=== PATIENT | male | born 1955 | race Caucasian/White ===

== ENCOUNTER → 2017-08-09 | Outpatient (CLI) | payer MEDICARE, OTHER ==
[~2017-08-09] MED LIST: ACET325 PO; ALBU90OI INH; ANTACID PO; ARIP10 PO; ASPI81EC PO; BACITO TP; Benztropine Me0.5 MG PO; Benztropine Mesy1 MG PO; CARB200; CARB200 PO; CEPH500 PO; CIPR500 PO; CODACE30 PO; CODACE60; CODACE60 PO; CYCL10 PO; Carbamazepine200 MG PO; FLUT44OIA INH; HALO5 PO; HYDACE10B PO; HYDACE5 PO; HYDCHL12.5 PO; HYDCHL50 PO; IBUP800 PO; LEVSOD25; LEVSOD25 PO; LISHYD1012 PO; LISI20 PO; LISI5 PO; LITH300C; LITH300ER PO; LITH450ER; LITH450ER PO; LORA.5 PO; LORA1 PO; MELA3 PO; METO25ER PO; METO50 PO; METO50ER; MULTIVITAMINS; NAPR500 PO; NAPR550 PO; OLAN10 PO; OLAN20 MM; OLAN7.5 PO; OMEP20ER PO; OXCA150; OXCA300; PENVK500 PO; PROACE100 PO; PROP20 PO; RISP.5; RXCODACET PO; RXPROACE PO; SULTRIDS PO; SULTRISS PO; TRAM50 PO; Therems1 EACH PO; VERA120ER PO; VERA120ERB PO; VERA240ER; VERA240ER PO; VERA240ERB; VERA80 PO; VERAPAMIL; Ventolin/Prove6.7 GM INH; ZOLP10; Zyprexa10 MG PO; [UNRECOGNIZED DRUG - CODE]; [UNRECOGNIZED DRUG - REMARK]
[2017-08-09 11:40] LABS: U Amphetamine Screen Not Detected; U Barbituate Screen Not Detected; U Benzodiazapine Screen Not Detected; U Buprenorphine Screen Not Detected; U Cannabinoids Screen Not Detected; U Cocaine Screen Not Detected; U Methadone Screen Not Detected; U Methamphetamine Screen Not Detected; U Opiates Screen Not Detected; U Oxycodone Screen Not Detected; U Phencyclidine Screen Not Detected; U Propoxyphene Screen Not Detected
== END ==
LOC: LAB 08:25 → LAB SHORT 08:25
PROVIDERS: Registered Nurse
DX: Z79.899 Other long term (current) drug therapy (principal)

== ENCOUNTER 2017-09-06 20:19 | Emergency (ER) | payer MEDICARE, OTHER ==
[~2017-09-06] VITALS: Ht 170.2 cm; Wt 81.7 kg
[2017-09-07] MEDS ORDERED: Benztropine Me0.5 MG PO (21:10)
[2017-09-07] MEDS ORDERED: TIOT18 INH (21:10)
[2017-09-07] MEDS ORDERED: HYDCHL50 PO (21:10)
[2017-09-07] MEDS ORDERED: GABA300 PO (21:10)
[2017-09-07] MEDS ORDERED: Zestril40 MG PO (21:11)
[2017-09-07] MEDS ORDERED: HALO2 PO (21:11)
== END 2017-09-06 20:57 | disposition left against medical advice (07) ==
LOC: ER 20:19
DX: Z53.21 Procedure and treatment not carried out due to patient leaving prior to being seen by health care provider (principal)

== ENCOUNTER 2017-09-07 19:07 | Emergency (ER) | payer MEDICARE, OTHER ==
[~2017-09-07] VITALS: Ht 170.2 cm; Wt 81.7 kg
[2017-09-07] MEDS ORDERED: TIOT18 INH (21:10)
[2017-09-07] MEDS ORDERED: Benztropine Me0.5 MG PO (21:10)
[2017-09-07] MEDS ORDERED: GABA300 PO (21:10)
[2017-09-07] MEDS ORDERED: HYDCHL50 PO (21:10)
[2017-09-07] MEDS ORDERED: Zestril40 MG PO (21:11)
[2017-09-07] MEDS ORDERED: HALO2 PO (21:11)
== END 2017-09-07 21:16 | disposition home or self-care (01) ==
LOC: ER 19:07
DX: F31.9 Bipolar disorder, unspecified (principal); I10 Essential (primary) hypertension; F03.90 Unspecified dementia, unspecified severity, without behavioral disturbance, psychotic disturbance, mood disturbance, and anxiety; F17.200 Nicotine dependence, unspecified, uncomplicated; Z91.018 Allergy to other foods; Z88.8 Allergy status to other drugs, medicaments and biological substances; Z88.5 Allergy status to narcotic agent; Z79.899 Other long term (current) drug therapy
CPT/HCPCS: 99283

== ENCOUNTER 2017-09-18 14:10 | Observation (INO) | payer MEDICARE, OTHER ==
[~2017-09-18] VITALS: Ht 172.7 cm; Wt 74.8 kg
[~2017-09-18 14:10] MED LIST changes: +BENADRYL25 MG PO; +GABA300 PO; +HALO2 PO; +HALO5; +TIOT18 INH; +Zestril40 MG PO
[2017-09-18 14:51] LABS: BASOPHILS ABSOLUTE AUTO 0.02 K/mm3 (0.00-0.23); BASOPHILS PERCENT AUTO 0 % (0-2); EOSINOPHILS ABSOLUTE AUTO 0.02 K/mm3 (0.00-0.68); EOSINOPHILS PERCENT AUTO 0 % (0-6); Hematocrit 39.8 % (37.0-53.0); Hemoglobin 14.1 g/dL (13.5-17.5); IMMATURE GRAN ABSOLUTE AUTO 0.02 K/mm3 (0.00-0.10); IMMATURE GRAN PERCENT AUTO 0 % (0-1); LYMPHOCYTES ABSOLUTE AUTO 2.06 K/mm3 (0.84-5.20); LYMPHOCYTES PERCENT AUTO 28 % (21-46); MONOCYTES ABSOLUTE AUTO 0.52 K/mm3 (0.16-1.47); MONOCYTES PERCENT AUTO 7 % (4-13); Mean Corpuscular HGB 32.6 pg (26.0-34.0); Mean Corpuscular HGB Conc 35.4 g/dL (31.5-36.5); Mean Corpuscular Volume 92 fL (80-100); Mean Platelet Volume 10.8 fL (9.1-12.4); NEUTROPHILS ABSOLUTE AUTO 4.81 K/mm3 (1.96-9.15); NEUTROPHILS PERCENT AUTO 64 % (41-73); Platelet Count 177 K/mm3 (150-400); RDW Coefficient Variation 12.1 % (11.7-14.2); RDW Standard Deviation 41.3 fL (35.1-46.3); Red Blood Cell Count 4.32 M/mm3 (4.30-5.90); White Blood Cell Count 7.45 K/mm3 (4.00-11.30)
[2017-09-18 14:58] LABS: Alanine Aminotransfer (ALT/SGP 50 U/L (12-78); Albumin/Globulin Ratio 1.4 (0.8-1.8); Alk Phos 46 U/L (50-136); Anion Gap 13 mmol/L (6-16); Aspartate Aminotrans (AST/SGOT 82 U/L (12-37); Bilirubin, Total 1.1 mg/dL (0.1-1.0); Blood Urea Nitrogen 17 mg/dL (8-24); Bun/Creatinine Ratio 17.2 (12.0-20.0); CO2, Blood 20 mmol/L (21-32); Calcium, Blood 8.6 mg/dL (8.5-10.1); Chloride, Blood 110 mmol/L (98-108); Creatinine, Blood 0.99 mg/dL (0.60-1.20); Ethanol (Alcohol), Blood, Med 222 mg/dL; Globulin, Blood 2.9 g/dL (2.2-4.0); Glomerular Filtration Rate >60 (60-); Glucose, Blood 72 mg/dL (70-99); Potassium, Blood 3.2 mmol/L (3.5-5.5); Sodium, Blood 143 mmol/L (136-145); Total Protein, Blood 6.9 g/dL (6.4-8.2)
== END 2017-09-18 18:39 | disposition home or self-care (01) ==
LOC: ER 14:10 → EOR 14:11
PROVIDERS: Emergency Medicine
DX: F10.229 Alcohol dependence with intoxication, unspecified (principal); E87.6 Hypokalemia; Z79.899 Other long term (current) drug therapy; Z87.891 Personal history of nicotine dependence; Y90.7 Blood alcohol level of 200-239 mg/100 ml
CPT/HCPCS: 80053; 85025; 93005; 93010; 99285-25; G0378; G0480; J7030

== ENCOUNTER 2017-09-20 08:12 | Emergency (ER) | payer MEDICARE, OTHER ==
[~2017-09-20] VITALS: Ht 170.2 cm; Wt 77.1 kg
[2017-09-20] MEDS ORDERED: HALO5 PO (17:02)
[2017-09-20] MEDS ORDERED: Ativan1 MG PO (17:03)
[2017-09-20] MEDS ORDERED: BENZ2 PO (17:03)
== END 2017-09-20 08:56 | disposition home or self-care (01) ==
LOC: ER 08:12
DX: T62.8X1A Toxic effect of other specified noxious substances eaten as food, accidental (unintentional), initial encounter (principal); F31.9 Bipolar disorder, unspecified; F03.90 Unspecified dementia, unspecified severity, without behavioral disturbance, psychotic disturbance, mood disturbance, and anxiety; F17.210 Nicotine dependence, cigarettes, uncomplicated; I10 Essential (primary) hypertension; Z91.09 Other allergy status, other than to drugs and biological substances; Z88.8 Allergy status to other drugs, medicaments and biological substances; Z88.5 Allergy status to narcotic agent

== ENCOUNTER 2017-09-20 16:43 | Emergency (ER) | payer MEDICARE, OTHER ==
[~2017-09-20] VITALS: Ht 170.2 cm; Wt 77.1 kg
[2017-09-20] MEDS ORDERED: HALO5 PO (17:02)
[2017-09-20] MEDS ORDERED: Ativan1 MG PO (17:03)
[2017-09-20] MEDS ORDERED: BENZ2 PO (17:03)
== END 2017-09-20 17:30 | disposition left against medical advice (07) ==
LOC: ER 16:43
DX: F99 Mental disorder, not otherwise specified (principal); I10 Essential (primary) hypertension; F31.9 Bipolar disorder, unspecified; F03.90 Unspecified dementia, unspecified severity, without behavioral disturbance, psychotic disturbance, mood disturbance, and anxiety; F17.200 Nicotine dependence, unspecified, uncomplicated; Z91.018 Allergy to other foods; Z88.8 Allergy status to other drugs, medicaments and biological substances; Z88.5 Allergy status to narcotic agent; Z79.899 Other long term (current) drug therapy

== ENCOUNTER 2017-09-23 11:54 | Observation (INO) | payer MEDICARE, OTHER ==
[~2017-09-23] VITALS: Ht 170.2 cm; Wt 77.1 kg
[~2017-09-23 11:54] MED LIST changes: +Ativan1 MG PO; +BENZ2 PO
== END 2017-09-23 15:21 | disposition home or self-care (01) ==
LOC: ER 11:54 → EOR 11:55
DX: R45.1 Restlessness and agitation (principal); T14.8XXA Other injury of unspecified body region, initial encounter; F03.90 Unspecified dementia, unspecified severity, without behavioral disturbance, psychotic disturbance, mood disturbance, and anxiety; F31.89 Other bipolar disorder; I10 Essential (primary) hypertension; F17.200 Nicotine dependence, unspecified, uncomplicated; Z23 Encounter for immunization; Z79.899 Other long term (current) drug therapy; Z88.5 Allergy status to narcotic agent; Z88.8 Allergy status to other drugs, medicaments and biological substances
CPT/HCPCS: 90714; 96372; 99285; G0378

== ENCOUNTER 2017-09-29 17:32 | Emergency (ER) | payer MEDICARE, OTHER ==
[~2017-09-29] VITALS: Ht 170.2 cm; Wt 74.8 kg
[2017-09-29 17:50] LABS: Hematocrit 40.4 % (37.0-53.0); Hemoglobin 13.9 g/dL (13.5-17.5); Mean Corpuscular HGB 32.7 pg (26.0-34.0); Mean Corpuscular HGB Conc 34.4 g/dL (31.5-36.5); Mean Platelet Volume 10.8 fL (9.1-12.4); Platelet Count 199 K/mm3 (150-400); RDW Coefficient Variation 12.9 % (11.7-14.2); Red Blood Cell Count 4.25 M/mm3 (4.30-5.90); White Blood Cell Count 7.57 K/mm3 (4.00-11.30)
[2017-09-29 17:54] LABS: Mean Corpuscular Volume 95 fL (80-100)
[2017-09-29 18:06] LABS: Anion Gap 9 mmol/L (6-16); Blood Urea Nitrogen 36 mg/dL (8-24); Bun/Creatinine Ratio 26.3 (12.0-20.0); CO2, Blood 24 mmol/L (21-32); Calcium, Blood 9.6 mg/dL (8.5-10.1); Chloride, Blood 111 mmol/L (98-108); Creatinine, Blood 1.37 mg/dL (0.60-1.20); Ethanol (Alcohol), Blood, Med <3 mg/dL; Glomerular Filtration Rate 56 (60-); Glucose, Blood 93 mg/dL (70-99); Potassium, Blood 3.7 mmol/L (3.5-5.5); Sodium, Blood 144 mmol/L (136-145)
== END 2017-09-29 18:41 | disposition home or self-care (01) ==
LOC: ER 17:32
PROVIDERS: Emergency Medicine
DX: E86.0 Dehydration (principal); I10 Essential (primary) hypertension; F31.9 Bipolar disorder, unspecified; F17.200 Nicotine dependence, unspecified, uncomplicated; Z79.899 Other long term (current) drug therapy
CPT/HCPCS: 36415; 80048; 85027; 96360; 99284-25; G0480; J7030

== ENCOUNTER 2017-10-15 17:09 | Emergency (ER) | payer MEDICARE, OTHER ==
[~2017-10-15] VITALS: Ht 170.2 cm; Wt 77.1 kg
[2017-10-15 17:31] LABS: BASOPHILS ABSOLUTE AUTO 0.02 K/mm3 (0.00-0.23); BASOPHILS PERCENT AUTO 0 % (0-2); EOSINOPHILS ABSOLUTE AUTO 0.03 K/mm3 (0.00-0.68); EOSINOPHILS PERCENT AUTO 0 % (0-6); Hematocrit 38.9 % (37.0-53.0); Hemoglobin 13.5 g/dL (13.5-17.5); IMMATURE GRAN ABSOLUTE AUTO 0.01 K/mm3 (0.00-0.10); IMMATURE GRAN PERCENT AUTO 0 % (0-1); LYMPHOCYTES ABSOLUTE AUTO 1.85 K/mm3 (0.84-5.20); LYMPHOCYTES PERCENT AUTO 24 % (21-46); MONOCYTES ABSOLUTE AUTO 0.85 K/mm3 (0.16-1.47); MONOCYTES PERCENT AUTO 11 % (4-13); Mean Corpuscular HGB 32.9 pg (26.0-34.0); Mean Corpuscular HGB Conc 34.7 g/dL (31.5-36.5); Mean Corpuscular Volume 95 fL (80-100); Mean Platelet Volume 11.1 fL (9.1-12.4); NEUTROPHILS ABSOLUTE AUTO 4.83 K/mm3 (1.96-9.15); NEUTROPHILS PERCENT AUTO 64 % (41-73); Platelet Count 174 K/mm3 (150-400); RDW Coefficient Variation 12.4 % (11.7-14.2); RDW Standard Deviation 43.4 fL (35.1-46.3); White Blood Cell Count 7.59 K/mm3 (4.00-11.30)
[2017-10-15 17:54] LABS: Albumin, Blood 3.8 g/dL (3.4-5.0); Albumin/Globulin Ratio 1.3 (0.8-1.8); Bilirubin, Total 1.3 mg/dL (0.1-1.0); Bun/Creatinine Ratio 16.2 (12.0-20.0); Calcium, Blood 8.8 mg/dL (8.5-10.1); Creatinine, Blood 1.42 mg/dL (0.60-1.20); Potassium, Blood 3.8 mmol/L (3.5-5.5); Total Protein, Blood 6.8 g/dL (6.4-8.2)
[2017-10-15] MEDS ORDERED: Zofran Odt4 MG PO (18:05)
== END 2017-10-15 18:23 | disposition home or self-care (01) ==
LOC: ER 17:09
PROVIDERS: Emergency Medicine
DX: E86.0 Dehydration (principal); I10 Essential (primary) hypertension; F17.200 Nicotine dependence, unspecified, uncomplicated; Z88.8 Allergy status to other drugs, medicaments and biological substances; Z91.018 Allergy to other foods; Z88.5 Allergy status to narcotic agent
CPT/HCPCS: 36415; 80053; 83690; 85025; 96374; 99284-25; J2405; J7030

== ENCOUNTER 2017-10-21 20:43 | Emergency (ER) | payer MEDICARE, OTHER ==
[~2017-10-21] VITALS: Ht 172.7 cm; Wt 72.6 kg
[~2017-10-21 20:43] MED LIST changes: +Zofran Odt4 MG PO
== END 2017-10-21 22:28 | disposition home or self-care (01) ==
LOC: ER 20:43
DX: F10.10 Alcohol abuse, uncomplicated (principal); Z91.018 Allergy to other foods; Z88.8 Allergy status to other drugs, medicaments and biological substances; Z88.5 Allergy status to narcotic agent; I10 Essential (primary) hypertension; F03.90 Unspecified dementia, unspecified severity, without behavioral disturbance, psychotic disturbance, mood disturbance, and anxiety; F17.210 Nicotine dependence, cigarettes, uncomplicated
CPT/HCPCS: 99283

== ENCOUNTER 2017-10-22 13:48 | Emergency (ER) | payer MEDICARE, OTHER ==
[~2017-10-22] VITALS: Ht 170.2 cm; Wt 77.1 kg
== END 2017-10-22 16:21 | disposition home or self-care (01) ==
LOC: ER 13:48
DX: Z59.0 Homelessness (principal); Z91.018 Allergy to other foods; Z88.8 Allergy status to other drugs, medicaments and biological substances; Z88.5 Allergy status to narcotic agent; I10 Essential (primary) hypertension; F31.9 Bipolar disorder, unspecified; F17.210 Nicotine dependence, cigarettes, uncomplicated
CPT/HCPCS: 99283

== ENCOUNTER 2017-10-31 16:02 | Observation (INO) | payer MEDICARE, OTHER ==
[~2017-10-31] VITALS: Ht 180.3 cm; Wt 81.7 kg
[2017-10-31 17:22] LABS: BASOPHILS ABSOLUTE AUTO 0.02 K/mm3 (0.00-0.23); BASOPHILS PERCENT AUTO 0 % (0-2); EOSINOPHILS ABSOLUTE AUTO 0.01 K/mm3 (0.00-0.68); EOSINOPHILS PERCENT AUTO 0 % (0-6); Hematocrit 39.9 % (37.0-53.0); Hemoglobin 13.4 g/dL (13.5-17.5); IMMATURE GRAN ABSOLUTE AUTO 0.02 K/mm3 (0.00-0.10); IMMATURE GRAN PERCENT AUTO 0 % (0-1); LYMPHOCYTES ABSOLUTE AUTO 1.24 K/mm3 (0.84-5.20); LYMPHOCYTES PERCENT AUTO 15 % (21-46); MONOCYTES ABSOLUTE AUTO 0.99 K/mm3 (0.16-1.47); MONOCYTES PERCENT AUTO 12 % (4-13); Mean Corpuscular HGB 32.1 pg (26.0-34.0); Mean Corpuscular HGB Conc 33.6 g/dL (31.5-36.5); Mean Corpuscular Volume 96 fL (80-100); Mean Platelet Volume 11.1 fL (9.1-12.4); NEUTROPHILS PERCENT AUTO 73 % (41-73); Platelet Count 190 K/mm3 (150-400); RDW Coefficient Variation 12.6 % (11.7-14.2); RDW Standard Deviation 43.6 fL (35.1-46.3); Red Blood Cell Count 4.18 M/mm3 (4.30-5.90); White Blood Cell Count 8.28 K/mm3 (4.00-11.30)
[2017-10-31 17:42] LABS: Alanine Aminotransfer (ALT/SGP 29 U/L (12-78); Albumin, Blood 3.7 g/dL (3.4-5.0); Albumin/Globulin Ratio 1.1 (0.8-1.8); Alk Phos 54 U/L (50-136); Anion Gap 8 mmol/L (6-16); Aspartate Aminotrans (AST/SGOT 32 U/L (12-37); Bilirubin, Total 0.7 mg/dL (0.1-1.0); Blood Urea Nitrogen 21 mg/dL (8-24); Bun/Creatinine Ratio 16.5 (12.0-20.0); CO2, Blood 26 mmol/L (21-32); Calcium, Blood 9.2 mg/dL (8.5-10.1); Chloride, Blood 105 mmol/L (98-108); Creatinine, Blood 1.27 mg/dL (0.60-1.20); Ethanol (Alcohol), Blood, Med <3 mg/dL; Globulin, Blood 3.3 g/dL (2.2-4.0); Glomerular Filtration Rate >60 (60-); Glucose, Blood 129 mg/dL (70-99); Salicylate <1.7 mg/dL (2.8-20.0); Sodium, Blood 139 mmol/L (136-145)
[2017-10-31 17:51] LABS: Acetaminophen, Random <2.0 ug/mL (10.0-30.0)
[2017-11-01 09:02] LABS: Source, Urine Clean Catch
[2017-11-01 09:05] LABS: Bilirubin, Urine Neg (Neg); Blood, Urine Neg (Neg); Glucose Qualitative, Urine Neg (Neg); Ketones, Urine Neg (Neg); Leukocyte Esterase, Urine Neg (Neg); Nitrite, Urine Neg (Neg); Protein, Urine Neg (Neg); Urobilinogen, Urine 1+ (Normal)
[2017-11-01 09:10] LABS: Appearance, Urine Clear (Clear); Color, Urine Yellow (P-Yellow)
[2017-11-01 09:19] LABS: U Amphetamine Screen Not Detected; U Barbituate Screen Not Detected; U Benzodiazapine Screen Not Detected; U Buprenorphine Screen Not Detected; U Cannabinoids Screen Not Detected; U Cocaine Screen Not Detected; U Methadone Screen Not Detected; U Methamphetamine Screen Not Detected; U Opiates Screen Not Detected; U Oxycodone Screen Not Detected; U Phencyclidine Screen Not Detected; U Propoxyphene Screen Not Detected
== END 2017-11-02 14:03 | disposition home or self-care (01) ==
LOC: ER 16:02 → EOR 16:03
PROVIDERS: Emergency Medicine
DX: F19.10 Other psychoactive substance abuse, uncomplicated (principal); F10.10 Alcohol abuse, uncomplicated; Y90.0 Blood alcohol level of less than 20 mg/100 ml; F32.9 Major depressive disorder, single episode, unspecified; F29 Unspecified psychosis not due to a substance or known physiological condition; F17.210 Nicotine dependence, cigarettes, uncomplicated; Z79.899 Other long term (current) drug therapy; Z79.891 Long term (current) use of opiate analgesic
CPT/HCPCS: 80053; 81003; 84443; 85025; 99285; 99285-25; G0378; G0480

== ENCOUNTER 2017-11-04 15:26 | Observation (INO) | payer MEDICARE, OTHER ==
[~2017-11-04] VITALS: Ht 170.2 cm; Wt 74.8 kg
[2017-11-04] MEDS ORDERED: HALO2 PO (15:35)
[2017-11-04] MEDS ORDERED: HALO5 PO (15:35)
[2017-11-04] MEDS ORDERED: LORA1 PO (15:36)
[2017-11-04] MEDS ORDERED: Benztropine Me0.5 MG PO (15:36)
[2017-11-04 16:51] LABS: BASOPHILS ABSOLUTE AUTO 0.03 K/mm3 (0.00-0.23); BASOPHILS PERCENT AUTO 0 % (0-2); EOSINOPHILS ABSOLUTE AUTO 0.07 K/mm3 (0.00-0.68); EOSINOPHILS PERCENT AUTO 1 % (0-6); Hematocrit 39.4 % (37.0-53.0); Hemoglobin 13.2 g/dL (13.5-17.5); IMMATURE GRAN ABSOLUTE AUTO 0.01 K/mm3 (0.00-0.10); IMMATURE GRAN PERCENT AUTO 0 % (0-1); LYMPHOCYTES ABSOLUTE AUTO 1.95 K/mm3 (0.84-5.20); LYMPHOCYTES PERCENT AUTO 28 % (21-46); MONOCYTES PERCENT AUTO 9 % (4-13); Mean Corpuscular HGB 31.7 pg (26.0-34.0); Mean Corpuscular HGB Conc 33.5 g/dL (31.5-36.5); Mean Corpuscular Volume 95 fL (80-100); NEUTROPHILS ABSOLUTE AUTO 4.42 K/mm3 (1.96-9.15); NEUTROPHILS PERCENT AUTO 63 % (41-73); Platelet Count 202 K/mm3 (150-400); RDW Coefficient Variation 12.3 % (11.7-14.2); Red Blood Cell Count 4.17 M/mm3 (4.30-5.90); White Blood Cell Count 7.08 K/mm3 (4.00-11.30)
[2017-11-04 17:14] LABS: Alanine Aminotransfer (ALT/SGP 25 U/L (12-78); Albumin, Blood 3.5 g/dL (3.4-5.0); Alk Phos 55 U/L (50-136); Anion Gap 8 mmol/L (6-16); Aspartate Aminotrans (AST/SGOT 34 U/L (12-37); Bilirubin, Total 0.8 mg/dL (0.1-1.0); Blood Urea Nitrogen 19 mg/dL (8-24); Bun/Creatinine Ratio 16.7 (12.0-20.0); CO2, Blood 26 mmol/L (21-32); Chloride, Blood 105 mmol/L (98-108); Creatinine, Blood 1.14 mg/dL (0.60-1.20); Ethanol (Alcohol), Blood, Med <3 mg/dL; Globulin, Blood 3.4 g/dL (2.2-4.0); Glomerular Filtration Rate >60 (60-); Glucose, Blood 84 mg/dL (70-99); Potassium, Blood 3.8 mmol/L (3.5-5.5); Salicylate <1.7 mg/dL (2.8-20.0); Sodium, Blood 139 mmol/L (136-145); Total Protein, Blood 6.9 g/dL (6.4-8.2)
[2017-11-04 17:16] LABS: Acetaminophen, Random <2.0 ug/mL (10.0-30.0)
[2017-11-05 05:56] LABS: Source, Urine Voided
[2017-11-05 05:59] LABS: Bilirubin, Urine Neg (Neg); Blood, Urine Neg (Neg); Glucose Qualitative, Urine Neg (Neg); Ketones, Urine Neg (Neg); Leukocyte Esterase, Urine Neg (Neg); Nitrite, Urine Neg (Neg); Protein, Urine Neg (Neg); Urobilinogen, Urine NORM (Normal)
[2017-11-05 06:00] LABS: Appearance, Urine Clear (Clear); Color, Urine Yellow (P-Yellow)
[2017-11-05 06:09] LABS: U Amphetamine Screen Not Detected; U Barbituate Screen Not Detected; U Benzodiazapine Screen DETECTED; U Buprenorphine Screen Not Detected; U Cannabinoids Screen Not Detected; U Cocaine Screen Not Detected; U Methadone Screen Not Detected; U Methamphetamine Screen Not Detected; U Opiates Screen Not Detected; U Oxycodone Screen Not Detected; U Phencyclidine Screen Not Detected; U Propoxyphene Screen Not Detected
== END 2017-11-12 11:40 ==
LOC: ER 15:26 → EOR 15:27
PROVIDERS: Emergency Medicine
DX: F29 Unspecified psychosis not due to a substance or known physiological condition (principal); F03.90 Unspecified dementia, unspecified severity, without behavioral disturbance, psychotic disturbance, mood disturbance, and anxiety; F19.10 Other psychoactive substance abuse, uncomplicated; I10 Essential (primary) hypertension; F41.9 Anxiety disorder, unspecified; R45.6 Violent behavior; F17.210 Nicotine dependence, cigarettes, uncomplicated; R45.850 Homicidal ideations; Z88.8 Allergy status to other drugs, medicaments and biological substances; Z88.5 Allergy status to narcotic agent; Z91.018 Allergy to other foods
CPT/HCPCS: 36415; 80053; 81003; 84443; 85025; 93005; 93010; 96372; 99285; G0378; G0480; J1200; J1630; J2060; J3486; Q0163

== ENCOUNTER 2017-11-29 16:32 | Observation (INO) | payer MEDICARE ==
[~2017-11-29] VITALS: Ht 170.2 cm; Wt 74.8 kg
[2017-11-29] MEDS ORDERED: Zestril40 MG (17:27)
[2017-11-29] MEDS ORDERED: TIOT18 INH (17:28)
[2017-11-29] MEDS ORDERED: HYDCHL50 PO ×2 (17:28→17:29)
[2017-11-29] MEDS ORDERED: GABA300 PO (17:28)
[2017-11-29 18:23] LABS: BASOPHILS ABSOLUTE AUTO 0.02 K/mm3 (0.00-0.23); BASOPHILS PERCENT AUTO 0 % (0-2); EOSINOPHILS ABSOLUTE AUTO 0.02 K/mm3 (0.00-0.68); EOSINOPHILS PERCENT AUTO 0 % (0-6); Hematocrit 44.4 % (37.0-53.0); Hemoglobin 14.8 g/dL (13.5-17.5); IMMATURE GRAN ABSOLUTE AUTO 0.01 K/mm3 (0.00-0.10); IMMATURE GRAN PERCENT AUTO 0 % (0-1); LYMPHOCYTES ABSOLUTE AUTO 1.68 K/mm3 (0.84-5.20); LYMPHOCYTES PERCENT AUTO 27 % (21-46); MONOCYTES PERCENT AUTO 8 % (4-13); Mean Corpuscular HGB 31.6 pg (26.0-34.0); Mean Corpuscular HGB Conc 33.3 g/dL (31.5-36.5); Mean Corpuscular Volume 95 fL (80-100); Mean Platelet Volume 10.8 fL (9.1-12.4); NEUTROPHILS ABSOLUTE AUTO 4.08 K/mm3 (1.96-9.15); NEUTROPHILS PERCENT AUTO 65 % (41-73); Platelet Count 207 K/mm3 (150-400); RDW Coefficient Variation 11.8 % (11.7-14.2); RDW Standard Deviation 40.8 fL (35.1-46.3); Red Blood Cell Count 4.69 M/mm3 (4.30-5.90); White Blood Cell Count 6.31 K/mm3 (4.00-11.30)
[2017-11-29 18:45] LABS: Alanine Aminotransfer (ALT/SGP 24 U/L (12-78); Albumin, Blood 3.9 g/dL (3.4-5.0); Alk Phos 61 U/L (50-136); Anion Gap 8 mmol/L (6-16); Aspartate Aminotrans (AST/SGOT 25 U/L (12-37); Blood Urea Nitrogen 13 mg/dL (8-24); Bun/Creatinine Ratio 11.5 (12.0-20.0); CO2, Blood 26 mmol/L (21-32); Calcium, Blood 9.3 mg/dL (8.5-10.1); Chloride, Blood 105 mmol/L (98-108); Creatinine, Blood 1.13 mg/dL (0.60-1.20); Ethanol (Alcohol), Blood, Med <3 mg/dL; Globulin, Blood 3.8 g/dL (2.2-4.0); Glomerular Filtration Rate >60 (60-); Glucose, Blood 96 mg/dL (70-99); Potassium, Blood 3.8 mmol/L (3.5-5.5); Salicylate <1.7 mg/dL (2.8-20.0); Sodium, Blood 139 mmol/L (136-145); Total Protein, Blood 7.7 g/dL (6.4-8.2)
[2017-11-29 18:57] LABS: Acetaminophen, Random <2.0 ug/mL (10.0-30.0)
[2017-11-30 04:57] LABS: Source, Urine Voided
[2017-11-30 05:06] LABS: Bilirubin, Urine Neg (Neg); Blood, Urine Neg (Neg); Glucose Qualitative, Urine Neg (Neg); Ketones, Urine Neg (Neg); Leukocyte Esterase, Urine Neg (Neg); Nitrite, Urine Neg (Neg); Protein, Urine 1+ (Neg); Urobilinogen, Urine 1+ (Normal)
[2017-11-30 05:12] LABS: Appearance, Urine Clear (Clear); Color, Urine Yellow (P-Yellow)
[2017-11-30 05:17] LABS: U Amphetamine Screen Not Detected; U Barbituate Screen Not Detected; U Benzodiazapine Screen Not Detected; U Buprenorphine Screen Not Detected; U Cannabinoids Screen Not Detected; U Cocaine Screen Not Detected; U Methadone Screen Not Detected; U Methamphetamine Screen Not Detected; U Opiates Screen Not Detected; U Oxycodone Screen Not Detected; U Phencyclidine Screen Not Detected; U Propoxyphene Screen Not Detected
== END 2017-12-04 14:00 | disposition home or self-care (01) ==
LOC: ER 16:32 → EOR 16:33
PROVIDERS: Emergency Medicine
DX: F23 Brief psychotic disorder (principal); F29 Unspecified psychosis not due to a substance or known physiological condition; F31.9 Bipolar disorder, unspecified; F17.210 Nicotine dependence, cigarettes, uncomplicated; F03.90 Unspecified dementia, unspecified severity, without behavioral disturbance, psychotic disturbance, mood disturbance, and anxiety; I10 Essential (primary) hypertension; Z88.5 Allergy status to narcotic agent; Z88.8 Allergy status to other drugs, medicaments and biological substances; Z79.899 Other long term (current) drug therapy
CPT/HCPCS: 80053; 84443; 85025; 96372; 99285; G0378; G0480; J1630; J2060; J3486; Q0163

== ENCOUNTER 2018-10-19 15:50 | Emergency (ER) | payer MEDICARE, OTHER ==
[~2018-10-19] VITALS: Ht 170.2 cm; Wt 81.7 kg
[~2018-10-19 15:50] MED LIST changes: +Zestril40 MG
== END 2018-10-19 16:23 | disposition home or self-care (01) ==
LOC: ER 15:50
DX: S51.812A Laceration without foreign body of left forearm, initial encounter (principal); S41.112A Laceration without foreign body of left upper arm, initial encounter; I10 Essential (primary) hypertension; F31.9 Bipolar disorder, unspecified; F17.210 Nicotine dependence, cigarettes, uncomplicated; Z79.899 Other long term (current) drug therapy; Z88.8 Allergy status to other drugs, medicaments and biological substances; Z91.018 Allergy to other foods; Z88.5 Allergy status to narcotic agent; W01.0XXA Fall on same level from slipping, tripping and stumbling without subsequent striking against object, initial encounter
CPT/HCPCS: 99283

== ENCOUNTER 2019-07-04 12:36 | Inpatient (IN) | payer MEDICARE, OTHER ==
[~2019-07-04] VITALS: Ht 175.3 cm; Wt 60.1 kg
[~2019-07-04 12:36] MED LIST changes: +BUDE6HFA INH; +VRAYLAR3 MG PO; +ZESTRIL40 M2 PO; -Zestril40 MG
[2019-07-04 12:55] LABS: BASOPHILS ABSOLUTE AUTO 0.01 K/mm3 (0.00-0.23); BASOPHILS PERCENT AUTO 0 % (0-2); EOSINOPHILS PERCENT AUTO 0 % (0-6); Hematocrit 44.3 % (37.0-53.0); Hemoglobin 14.1 g/dL (13.5-17.5); IMMATURE GRAN ABSOLUTE AUTO 0.09 K/mm3 (0.00-0.10); IMMATURE GRAN PERCENT AUTO 1 % (0-1); LYMPHOCYTES ABSOLUTE AUTO 0.62 K/mm3 (0.84-5.20); LYMPHOCYTES PERCENT AUTO 4 % (21-46); MONOCYTES ABSOLUTE AUTO 0.97 K/mm3 (0.16-1.47); MONOCYTES PERCENT AUTO 6 % (4-13); Mean Corpuscular HGB 31.2 pg (26.0-34.0); Mean Corpuscular HGB Conc 31.8 g/dL (31.5-36.5); Mean Corpuscular Volume 98 fL (80-100); Mean Platelet Volume 10.9 fL (9.1-12.4); NEUTROPHILS ABSOLUTE AUTO 14.98 K/mm3 (1.96-9.15); NEUTROPHILS PERCENT AUTO 90 % (41-73); Platelet Count 297 K/mm3 (150-400); RDW Coefficient Variation 12.7 % (11.7-14.2); RDW Standard Deviation 45.4 fL (35.1-46.3); Red Blood Cell Count 4.52 M/mm3 (4.30-5.90); White Blood Cell Count 16.67 K/mm3 (4.00-11.30)
[2019-07-04 14:05] LABS: International Normalized Ratio 1.23
[2019-07-04 14:11] LABS: Albumin, Blood 2.6 g/dL (3.4-5.0); Albumin/Globulin Ratio 0.6 (0.8-1.8); Bilirubin, Total 0.9 mg/dL (0.1-1.0); Bun/Creatinine Ratio 26.5 (12.0-20.0); Creatinine, Blood 1.32 mg/dL (0.60-1.20); Globulin, Blood 4.2 g/dL (2.2-4.0); Potassium, Blood 4.3 mmol/L (3.5-5.5); Total Protein, Blood 6.8 g/dL (6.4-8.2)
[2019-07-04] MEDS ORDERED: HALO5 PO (14:16)
[2019-07-04] MEDS ORDERED: GABA100 PO (14:17)
[2019-07-04] MEDS ORDERED: METOPROLOL SUCC25 MG PO (14:19)
[2019-07-04 14:20] LABS: Troponin I 0.741 ng/mL (0.000-0.040)
[2019-07-04 14:34] LABS: Source, Urine Catheter
[2019-07-04 14:42] LABS: Appearance, Urine Clear (Clear); Bilirubin, Urine Neg (Neg); Blood, Urine 1+ (Neg); Color, Urine Yellow (P-Yellow); Glucose Qualitative, Urine Neg (Neg); Ketones, Urine 1+ (Neg); Leukocyte Esterase, Urine Neg (Neg); Nitrite, Urine Neg (Neg); Protein, Urine 3+ (Neg); Urobilinogen, Urine NORM (Normal)
[2019-07-04 14:44] LABS: Bacteria Few /hpf; Red Blood Cells, Urine 0-2 /hpf (0-2); Squamous Epithelial Cells Few /hpf (Few); White Blood Cells, Urine 0-2 /hpf (0-5)
[2019-07-04 14:51] LABS: U Amphetamine Screen Not Detected; U Barbituate Screen Not Detected; U Benzodiazapine Screen Not Detected; U Buprenorphine Screen Not Detected; U Cannabinoids Screen Not Detected; U Cocaine Screen Not Detected; U Methadone Screen Not Detected; U Methamphetamine Screen Not Detected; U Opiates Screen Not Detected; U Oxycodone Screen Not Detected; U Phencyclidine Screen Not Detected; U Propoxyphene Screen Not Detected
[2019-07-04 17:48] LABS: PCO2 Arterial 29.4 mmHg (35-45); PO2 Arterial 65.5 mmHg (80-100); pH Blood Arterial 7.46 (7.35-7.45)
[2019-07-04 18:13] LABS: Adenovirus Not Detected (NOT DETECT); Coronavirus 229E Not Detected (NOT DETECT); Coronavirus HKU1 Not Detected (NOT DETECT); Coronavirus NL63 Not Detected (NOT DETECT)
[2019-07-04 18:14] LABS: Bordetella pertussis Not Detected (NOT DETECT); Chlamydophila pneumoniae Not Detected (NOT DETECT); Coronavirus OC43 Not Detected (NOT DETECT); Human Metapneumovirus Not Detected (NOT DETECT); Human Rhinovirus/Enterovirus Not Detected (NOT DETECT); Influenza A/2009-H1 Not Detected (NOT DETECT); Influenza A/H1 Not Detected (NOT DETECT); Influenza A/H3 Not Detected (NOT DETECT); Influenza B Not Detected (NOT DETECT); Mycoplasma pneumoniae Not Detected (NOT DETECT); Parainfluenza Virus 1 Not Detected (NOT DETECT); Parainfluenza Virus 2 Not Detected (NOT DETECT); Parainfluenza Virus 3 Not Detected (NOT DETECT); Parainfluenza Virus 4 Not Detected (NOT DETECT); Respiratory Syncytial Virus Not Detected (NOT DETECT)
[2019-07-04 21:10] LABS: Source, Urine Catheter
[2019-07-04 21:13] LABS: Appearance, Urine Clear (Clear); Bilirubin, Urine Neg (Neg); Blood, Urine 1+ (Neg); Color, Urine Yellow (P-Yellow); Glucose Qualitative, Urine Neg (Neg); Ketones, Urine 1+ (Neg); Leukocyte Esterase, Urine Neg (Neg); Nitrite, Urine Neg (Neg); Protein, Urine 2+ (Neg); Specific Gravity, Urine 1.015 (1.003-1.022); Urobilinogen, Urine NORM (Normal)
[2019-07-04 21:19] LABS: Bacteria Few /hpf; Mucus Light (0-Heavy); Red Blood Cells, Urine 0-2 /hpf (0-2); Squamous Epithelial Cells Rare /hpf (Few); White Blood Cells, Urine Not Seen /hpf (0-5)
[2019-07-04 21:31] LABS: Troponin I 1.06 ng/mL (0.000-0.040)
--- NOTE | 2019-07-05 | NUR ---
ASSUMPTION OF CARE ASSUMED CARE OF PT @ 1900, PT ARRIVED TO ICU @ 1850 VIA GURNEY WITH ED RN AND ENAMEL MACHINE OPERATOR. PT ORIENTED TO SELF, LOCATION, EVENT AND FOLLOWING DIRECTIONS. PT PLACED ON 15L PER NRB TO MAINTAIN O2 SATURATIONS>92%, PT WITH INCREASED WOB AND ACCESSORY MUSCLE USE. MONITOR SHOWS IRREGULAR HEART RHYTHM WITH HR 130-150'S, PT HYPERTENSIVE WITH SBP 170'S. CAROLINA GONZALEZ APPRAISER PERSONAL PROPERTY TO ROOM TO CLARIFY CODE STATUS, PT STS HE DOES NOT WANT CPR OR INTUBATION BUT IS OKAY WITH A CENTRAL LINE. HI FLOW O2, EKG AND BLADDER SCAN ORDERED. HEPARIN HELD DUE TO IV ACCESS AND POSS NEED FOR CENTRAL LINE. RT TO ROOM PT PLACED ON AIRVO 60L AND 94% FIO2, PT TOLERATED FOR SHORT PERIOD OF TIME, PLACED BACK ON NRB, PT DOES NOT TOLERATE SUPPLEMENTAL O2, QUICKLY REMOVES MASKS, NC, ETC. NRB PLACED NEAR PTS FACE, O2 SATURATIONS> 92%. BLADDER SCAN SHOWED 942ml, SHELDON PLACED WITH IMMEDIATE RETURN>500ml URINE, SPECIMEN SENT TO LAB. EKG COMPLETED, REVEIWED BY CAROLINA GONZALEZ APPRAISER PERSONAL PROPERTY. PT VERY FIXATED ON POSSIBILITY OF HAVING DRANK "DIRTY WATER", REPEATED REPORTS TO THIS RN THAT HE IS SICK DUE TO DRINKING DIRTY WATER IN RIDDLE, REASSURED PT HE IS RECEIVING CARE AND MEDICATIONS TO HELP WITH CURRENT ILLNESS. PT MOOD VERY LABILE, CALM AND COOPERATIVE AT TIMES, YELLING AT STAFF "GET YOUR GOD DAMN HANDS OFF ME" AT OTHER TIMES. PT TOLERATES PO INTAKE OF WATER, CALL LIGHT WITHIN REACH, PT USES APPROPRIATELY.
[2019-07-05 05:15] LABS: BASOPHILS ABSOLUTE AUTO 0.01 K/mm3 (0.00-0.23); BASOPHILS PERCENT AUTO 0 % (0-2); EOSINOPHILS PERCENT AUTO 0 % (0-6); Hematocrit 40.6 % (37.0-53.0); Hemoglobin 13.5 g/dL (13.5-17.5); IMMATURE GRAN PERCENT AUTO 1 % (0-1); LYMPHOCYTES PERCENT AUTO 9 % (21-46); MONOCYTES ABSOLUTE AUTO 0.78 K/mm3 (0.16-1.47); MONOCYTES PERCENT AUTO 5 % (4-13); Mean Corpuscular HGB Conc 33.3 g/dL (31.5-36.5); Mean Platelet Volume 10.9 fL (9.1-12.4); NEUTROPHILS ABSOLUTE AUTO 12.89 K/mm3 (1.96-9.15); NEUTROPHILS PERCENT AUTO 85 % (41-73); Platelet Count 261 K/mm3 (150-400); RDW Coefficient Variation 12.6 % (11.7-14.2); RDW Standard Deviation 43.2 fL (35.1-46.3); Red Blood Cell Count 4.35 M/mm3 (4.30-5.90); White Blood Cell Count 15.18 K/mm3 (4.00-11.30)
[2019-07-05 05:17] LABS: Mean Corpuscular Volume 93 fL (80-100)
[2019-07-05 05:40] LABS: Albumin, Blood 2.5 g/dL (3.4-5.0); Albumin/Globulin Ratio 0.7 (0.8-1.8); Bilirubin, Total 0.9 mg/dL (0.1-1.0); Bun/Creatinine Ratio 26.1 (12.0-20.0); Calcium, Blood 8.8 mg/dL (8.5-10.1); Creatinine, Blood 1.38 mg/dL (0.60-1.20); Globulin, Blood 3.8 g/dL (2.2-4.0); Potassium, Blood 3.8 mmol/L (3.5-5.5); Total Protein, Blood 6.3 g/dL (6.4-8.2)
[2019-07-05 05:44] LABS: Troponin I 0.928 ng/mL (0.000-0.040)
--- NOTE | 2019-07-05 07:30 | NUR ---
SHIFT SUMMARY NO ACUTE CHANGES THIS SHIFT, PT RESTED T/O NIGHT, PT BECOMES EASILY AGITATED/OVERWHELMED WITH CARE, CURSING AND YELLING AT TIMES, CALM AND COOPERATIVE AT OTHER TIMES. MILD CONFUSION THIS MORNING, PT ASKING WHERE HE WAS, RE-ORIENTED PT, PT VERBALIZES UNDERSTANDING. NRB REMAINED AVAILABLE TO PT T/O NIGHT, PT TOLERATES FOR SHORT PERIODS, ON RA FOR MUCH OF SHIFT, O2 SATURATIONS> 90%. MONITOR SHOWS HR 100-130'S, BP STABLE. PT TOLERATING PO INTAKE OF WATER, CONTINUES TO REPORT TO RN THAT HE DRANK DIRTY WATER, ASSURED PT WATER AT BEDSIDE IS CLEAN. PT VERBILZED DESIRE TO GO HOME, ENCOURAGED PT TO STAY AND SPEAK WITH PROVIDER BEFORE MAKING A DECISION TO LEAVE, PT AGREED. STEVEN REMAINS IN PLACED. PT REPOSITIONS SELF IN BED. CALL LIGHT WITHIN REACH. REPORT GIVEN TO JUAN COLBERT.
--- NOTE | 2019-07-05 10:05 | NUR ---
[place] of Care: Care assumed at 0700hr. Patient initially calm, side-lying in bed and appears comfortable. Oriented to self and place, but confused to date/time, and stated he was in hospital from "drinking dirty water". SpO2 at shift change [id number] on RA, respirations low 20's, and no s/s of distress. Patient also denies pain, discomfort. At approx 0800hr, patient began to show increasing signs of repiratory distress and becoming more confused. Attempted to get out of bed, causing respiratory rate to increase to 30's40's, spO2- decreased to low 80's, and significant increase in work of breathing. Patient also having hallucinations, stating to see people outside window, and stating "there is sperm in the water". Patient placed on non-rebreather mask, but continued to remove mask from face. Call placed to Dr. Magana, informed of patient condition. Received order for X1 5mg IV haldol. Patient attempted to get out of bed, and respiratory distress further increased. RT Lucille called, and BiPAP brought to room. Patient repositioned high-fowlers, IV Haldol given and placed on BiPAP mask. Patient initially continually attempted to remove BiPAP mask, but is now tolerating mask without difficulty. store operations manager Margarito placed additional call to Dr. Magana, who gave orders for precedex gtt and pulmonary consult. Dr. Driscoll notified of consult in person in unit. Precedex not started at this time, as patient is tolerating BiPAP. Peripheral IV's x2 patent and intact, infusing without difficulty. Heparin gtt infusing at 16 u/kg/hr, dose verified with 2nd RN and EMAR. Baca cath patent and intact, draining clear yellow urine. Will continue to monitor.
--- NOTE | 2019-07-05 13:48 | NUR ---
Echocardiogram completed by Kristin Driscoll RDCS.
[2019-07-05 17:52] LABS: Vancomycin, Trough 11.4 ug/mL (5.0-10.0)
[2019-07-05 18:26] LABS: Bun/Creatinine Ratio 25.7 (12.0-20.0); Calcium, Blood 8.4 mg/dL (8.5-10.1); Creatinine, Blood 1.52 mg/dL (0.60-1.20); Magnesium, Blood 2.2 mg/dL (1.6-2.4); Phosphorus, Blood 3.6 mg/dL (2.5-4.9); Potassium, Blood 3.5 mmol/L (3.5-5.5)
--- NOTE | 2019-07-05 18:47 | NUR ---
Shift Summary: See assumption of care note r/t placement of BiPAP mask. Patient slept and tolerated BiPAP mask for approx x2hr. Patient then woke and continually pulled off BiPAP mask. SpO2 greater than 92% while off mask but work of breathing and signs of distress quickly increased. Patient also appeared more confused, no longer verbally answering staff of following commands, only opening eyes and looking around the room, also restless in bed. Patient then placed on precedex gtt and bilateral soft wrist restraints to help him tolerate BiPAP mask. Precedex gtt started at 0.2mcg/kg/hr then titrated up to 0.7mcg/kg/hr, this dose effective to calm patient. Patient continues to rouse on his own and to verbal stimuli, but appears calm/comfortable. Patient began to have occasional PVC's this afternoon. Call placed to Dr. Driscoll, received order for BMP, magnesium, and phosphorus. Resulted reported to Dr. Driscoll, received order for IV KCl per K+ of 3.5, mag and phos wnl. Baca cath remains patent and intact, draining clear yellow urine, 1600ml output this shift. Appears calm and comfortable at this time. Report given to NOC shift RN.
--- NOTE | 2019-07-05 22:42 | NUR ---
ASSUMPTION OF CARE ASSUMED CARE OF PT @ 1900, PT RESTING IN BED, DIFFICULT TO AROUSE, DOES NOT ANSWER QUESTIONS OR FOLLOW DIRECTIONS, PRECEDEX INF @ 0.7 (SEE FLOWSHEET FOR TITRATIONS) TO TOLERATE BIPAP, 12/ FIO2 35%. MONITOR SHOWS SINUS RHYTHM WITH FREQUENT PAC'S, SOME PVC'S, KCL GTT INITIATED. BP STABLE. PT LAU, ABLE TO SHIFT/REPOSITIONS SELF IN BED INDEPENDENTLY. SHELDON IN PLACE DRAINING YELLOW URINE. PO MEDS HELD AT THIS TIME DUE TO PTS DEC LOC AND NEED FOR BIPAP. CALL LIGHT WITHIN REACH.
--- NOTE | 2019-07-06 01:24 | NUR ---
PT MOANING THROUGH MASK, APPEARED TO BE TRYING TO COMMUNICATE. BREIF BREAK GIVEN FOR COMMUNICATION, BIPAP OFF FOR APPROX 30 SECONDS, PTS WOB INCREASED, O2 SATURATIONS DECREASED TO 83%. PT PLACED BACK ON BIPAP. PT BECAME VERY AGITATED, PULLING AT RESTRAINTS, LIFTING HEAD OFF BED, PULLING AT BIPAP MASK. PRECEDEX INCREASED TO 0.7 (SEE FLOWSHEET), AGITATION CONTINUED, PT NOT TOLERATING MASK, HALDOL IM ADMINISTERED (SEE MAR). PT CONTINUES TO BE RESTLESS IN BED. WILL CONTINUE TO MONITOR.
--- NOTE | 2019-07-06 02:03 | NUR ---
PT RESTING IN BED AT THIS TIME, TOLERATING BIPAP.
--- NOTE | 2019-07-06 05:23 | NUR ---
APNEIC PERIODS NOTED, LASTING APPROX 30-60 SECONDS, PULSES REMAIN PRESENT, PT OPENS EYES TO VERBAL STIMULI BUT DOES INITIATE BREATH UPON STIMULOUS. PRECEDEX PLACED ON SB AT THIS TIME, RT TO ROOM TO ADJUST BIPAP MASK AND SETTINGS. PT REPOSITIONING SELF IN BED. WILL CONTINUE TO MONITOR.
[2019-07-06 05:26] LABS: BASOPHILS PERCENT AUTO 0 % (0-2); EOSINOPHILS ABSOLUTE AUTO 0.01 K/mm3 (0.00-0.68); EOSINOPHILS PERCENT AUTO 0 % (0-6); Hemoglobin 13.2 g/dL (13.5-17.5); IMMATURE GRAN ABSOLUTE AUTO 0.03 K/mm3 (0.00-0.10); IMMATURE GRAN PERCENT AUTO 0 % (0-1); LYMPHOCYTES ABSOLUTE AUTO 1.03 K/mm3 (0.84-5.20); LYMPHOCYTES PERCENT AUTO 10 % (21-46); MONOCYTES ABSOLUTE AUTO 0.61 K/mm3 (0.16-1.47); MONOCYTES PERCENT AUTO 6 % (4-13); Mean Corpuscular HGB 31.1 pg (26.0-34.0); Mean Corpuscular Volume 94 fL (80-100); Mean Platelet Volume 11.4 fL (9.1-12.4); NEUTROPHILS ABSOLUTE AUTO 9.03 K/mm3 (1.96-9.15); NEUTROPHILS PERCENT AUTO 84 % (41-73); Platelet Count 246 K/mm3 (150-400); RDW Coefficient Variation 12.5 % (11.7-14.2); RDW Standard Deviation 43.8 fL (35.1-46.3); Red Blood Cell Count 4.25 M/mm3 (4.30-5.90); White Blood Cell Count 10.71 K/mm3 (4.00-11.30)
[2019-07-06 05:44] LABS: Albumin, Blood 2.1 g/dL (3.4-5.0); Albumin/Globulin Ratio 0.6 (0.8-1.8); Bilirubin, Direct 0.3 mg/dL (0.0-0.3); Bilirubin, Indirect 0.6 mg/dL (0.1-0.7); Bilirubin, Total 0.9 mg/dL (0.1-1.0); Bun/Creatinine Ratio 28.8 (12.0-20.0); Calcium, Blood 8.5 mg/dL (8.5-10.1); Creatinine, Blood 1.39 mg/dL (0.60-1.20); Globulin, Blood 3.7 g/dL (2.2-4.0); Magnesium, Blood 2.4 mg/dL (1.6-2.4); Phosphorus, Blood 4.8 mg/dL (2.5-4.9); Potassium, Blood 3.3 mmol/L (3.5-5.5); Total Protein, Blood 5.8 g/dL (6.4-8.2)
--- NOTE | 2019-07-06 07:36 | NUR ---
SHIFT SUMMARY PT REMAINS ON BIPAP T/O NIGHT, PRECEDEX TITRATED TO TOLERATE BIPAP, HALDOL ADMINISTERED FOR AGITATION, PT NOT TOLERATING BREIF BREAKS FROM BIPAP (SEE PREV NOTES), WOB QUICKLY INCREASES AND O2 SATS DECREASE, PERIODS OF APNEA NOTED THIS SHIFT (SEE PREVIOUS NOTE). MONITOR SHOWS SINUS RHYTHM WITH FREQUENT PAC'S AND PVC'S, BP STABLE. FOELY REMAINS IN PLACE DRAINING CLEAR YELLOW URINE. REPORT GIVEN TO ALLISON COLBERT. PT MORE ALERT TOWARDS END OF SHIFT, FOLLOWING SOME COMMANDS, REMAINS NON-VERBAL.
--- NOTE | 2019-07-06 09:25 | NUR ---
ASSUMED CARE OF PT AT 0700. REPORT FROM ZAKIA COLBERT. PT RESTING IN BED. RESPONSES TO VERBAL STIMULI, DOES NOT ANSWER QUESTIONS, MAKES EYE CONTACT. PRECEDEX INFUSING AT 0.3 MCG/KG/HR. FOLLOWS SIMPLE COMMANDS. LUNGS COARSE THROUGHOUT, WORSE ON LEFT. PT P/W/D. NO COUGH NOTED. PT ON BIPAP, 02/13 30%. O2 SATS >95%. PT'S RESP RATE INCREASES c STIMULATION OR CARE PROVIDED. MAEW. ABLE TO REPOSITION SELF IN BED. HEPARIN BOLUS GIVEN PER PHARMACY, RATE INCREASED TO 22 UNITS/KG/HR. PO FLUIDS HELD AT THIS TIME D/T ASPIRATION RISK. SHELDON IN PLACE, PATENT AND DRAINING CLEAR YELLOW URINE TO GRAVITY. WILL CONTINUE TO DIURESIS TODAY. POWERGLIDE TO LUE. VSS. WILL CONTINUE TO MONITOR. DR ROLDAN AT BEDSIDE FOR ASSESSMENT. PT PENDING PSYCH EVAL, PER DR ROLDAN, RESTART HOME PSYCH MEDS. CONTINUE TO DIUERSIS AND ANTIBIOTICS.
--- NOTE | 2019-07-06 10:41 | NUR ---
SPOKE c DR ROQUE ON PHONE. LISINOPRIL ADDED AND METOPROLOL CHANGED. PER DR ROQUE PT WILL NEED CARDIAC CATH PRIOR TO D/C. ATTEMPTED TO ADMINISTER ORAL MEDS. PT COUGHED c SMALL SIPS OF WATER. MEDS HELD. WHEN BIPAP REMOVED, O2 SATS DECREASED TO 88%, RESP RATE INCREASED TO 30'S. BIAP REPLACED.
--- NOTE | 2019-07-06 14:21 | NUR ---
DR ALEX IN TO SEE PT. PLAN TO START HOME PSYCH MEDS, [facility]. DR ALEX STATES HE HAS SAMPLES HE CAN BRING FROM OFFICE.
[2019-07-06 17:31] LABS: Vancomycin, Trough 19.2 ug/mL (5.0-10.0)
--- NOTE | 2019-07-06 18:11 | NUR ---
SHIFT SUMMARY PT ON BIPAP MOST OF SHIFT OTHER THAN BREAKS FOR ORAL CARE. SETTINGS / 30%. O2 SATS REMAIN >95%. PT FAILED BEDSIDE SWALLOW EVAL THIS AM. SPEECH THERAPY CONSULT ORDERED FOR TOMMOROW. DIURESED TODAY, 1900 ML URINE OUT. PT NON VERBAL ALL SHIFT. MAKES EYE CONTACT. FOLLOWS SIMPLE DIRECTIONS AND REDIRECTABLE c CARE. OCCASIONALLY PULLS ON BIPAP OR MOVES DOWN IN BED. CRYSTAL VEST IN PLACE. PLAN TO RESTART HOME [facility] TOMORROW, DR ALEX WILL BRING IN SAMPLES. HEPARIN CONTINUES TO INFUSE AT 22 UNITS/KG/HR. VSS. WILL CONTINUE TO MONITOR UNTIL REPORT TO ONCOMING NURSE.
--- NOTE | 2019-07-06 20:51 | NUR ---
ASSUMED CARE OF PT AT 1900. BEDSIDE REPORT GIVEN, NO FAMILY PRESENT. PT DID NOT PARTICIPATE. CHANGED PT TO NASAL CANNULA DUE TO AGITATION, PT TOLERATING WELL. PT HELD MY HAND FOR A FEW MINUTES. PT PERFORMED OWN SUCTION BASED ORAL CARE TO BRUSH GUMS AND TONGUE. PT CURRENTLY COOPERATIVE, BUT NOT SPEAKING.
[2019-07-07 03:54] LABS: Hematocrit 42.3 % (37.0-53.0); Hemoglobin 13.6 g/dL (13.5-17.5); Mean Corpuscular HGB 30.8 pg (26.0-34.0); Mean Corpuscular HGB Conc 32.2 g/dL (31.5-36.5); Mean Corpuscular Volume 96 fL (80-100); Mean Platelet Volume 11.7 fL (9.1-12.4); Platelet Count 231 K/mm3 (150-400); RDW Coefficient Variation 12.3 % (11.7-14.2); RDW Standard Deviation 43.3 fL (35.1-46.3); Red Blood Cell Count 4.41 M/mm3 (4.30-5.90); White Blood Cell Count 8.86 K/mm3 (4.00-11.30)
[2019-07-07 04:16] LABS: Albumin, Blood 2.3 g/dL (3.4-5.0); Albumin/Globulin Ratio 0.6 (0.8-1.8); Bun/Creatinine Ratio 30.2 (12.0-20.0); Calcium, Blood 8.7 mg/dL (8.5-10.1); Creatinine, Blood 1.39 mg/dL (0.60-1.20); Globulin, Blood 3.8 g/dL (2.2-4.0); Magnesium, Blood 2.4 mg/dL (1.6-2.4); Phosphorus, Blood 3.6 mg/dL (2.5-4.9); Potassium, Blood 3.6 mmol/L (3.5-5.5); Total Protein, Blood 6.1 g/dL (6.4-8.2)
--- NOTE | 2019-07-07 05:46 | NUR ---
PT ACTIVE THROUGH THE NIGHT. STILL NON VERBAL WITH STAFF, BUT SEEKS TO HOLD HANDS. COOPERATIVE WITH CARE UNTIL FINAL ORAL CARE, WHICH PT REFUSED, AND BECAME IRRITATED. PT THEN WENT TO DOZING ON BIPAP, ROUSING EVERY COUPLE MINUTES AND SHIFTING POSITION.
--- NOTE | 2019-07-07 10:08 | NUR ---
CARE ASSUMED CARE AND REPORT ASSUMED FROM EUGENE COLBERT. PT SLEEPING WITH BIPAP /, 21%. NO S/S PAIN. PT CONTINUALLY MOVING AROUND IN BED AND IS RESTLESS. BIPAP REMOVED AND 5L NC APPLIED. PT DROWSY AND CANNOT FOLLOW COMMANDS AT THIS TIME. WILL ATTEMPT TO KEEP BIPAP OFF AND ENCOURAGE PT TO COUGH AND CLEAR SECRETIONS. PRECEDEX GTT INFUSING AT 0.5. HEPARIN GTT AT 23 UNITS. PT RESTRAINED IN VEST AND BUE RESTRAINED TO KEEP HIM FROM PT FROM PULLING AT LINES. SHELDON CATH SECURED, PATENT AND DRAINING. WILL CONTINUE TO MONITOR.
--- NOTE | 2019-07-07 11:38 | NUR ---
REASSESSMENT PT RECCEIVED BEDBATH AND LINEN CHANGE. NT SUCTIONING COMPLETED; MODERATE AMOUNT OF SECRETIONS. PT NOW HAS CLEAR AUDITORY BREATHING AND IS TOLERATING 5L NC WELL. AFEBRILE. PRECEDEX GTT DECREASED TO 0.2 MCG TO EVALUATE IF PT WILL AWAKEN AND FOLLOW COMMANDS BETTER. BP WNL. L ARM SWOLLEN AND SIGNIFICANTLY LARGER THAN R ARM. POWERGLIDE REMOVED FROM HIEN AND INFILTRATED FLUID NOTED WEEPING FROM INSERTION SITE. WILL MONITOR ARM. PT REMAINS ON HEPARIN GTT AT 23 UNITS. WILL CONTINUE TO MONITOR.
--- NOTE | 2019-07-07 13:12 | NUR ---
CARDIOLOGY CARDIOLOGY WILL CONSULT FOR POSSIBLE HEART CATH ONCE PT IS AWAKE, ALERT AND ABLE TO FOLLOW COMMANDS APPROPRIATELY AND TAKE PO.
--- NOTE | 2019-07-07 16:08 | NUR ---
REASSESSMENT AFTER PRECEDEX GTT HAD BEEN OFF FOR AWHILE, PT CONTINUED TO DISPLAY WEAKNESS ONLY ON L SIDE, ALONG WITH PERSISTENT GAZE UPWARD AND INABILITY TO FOLLOW COMMANDS. MD ROLDAN CONTACTED AND UPDATED ON SYMPTOMS. PT THEN TAKEN DOWN TO CT FOR HEAD SCAN. PT NOW BACK IN ROOM, ON MONITOR. PRECEDEX GTT REMAINS OFF. VSS. SPOKE WITH MD ROLDAN ON PHONE REGARDING CT RESULTS. HEPARIN GTT DISCONTINUED PER MD ORDER. PT REMAINS RESTRAINED IN CRYSTAL VEST AND BUE RESTRAINTS. NEW POWERGLIDE INSERTED INTO VERA. L ARM REMAINS SWOLLEN AND WRAPPED IN PABLO BANDAGE.
--- NOTE | 2019-07-07 18:18 | NUR ---
SHIFT SUMMARY PT OFF PRECEDEX MOST OF DAY. SEE NOTES ON NEURO CHANGE AND CT SCAN. PT REMAINS IN CRYSTAL VEST AND UPPER EXTREMITY SOFT RESTRAINTS. VSS. WILL GIVE BEDSIDE, HANDOFF REPORT TO NOC RN.
--- NOTE | 2019-07-07 20:38 | NUR ---
ASSUMPTION OF CARE: PT AWAKE IN BED. NONVERBAL AT THIS TIME. PT HAS AN UPWARDS GAZE AND IS NOT TRACKING MOVEMENT. NO LEFT SIDED MOVEMENT. IS ABLE TO MOVE R SIDE SPONTANEOUSLY. WHEN ASKED PT TO SQUEEZE MY HAND HE APPEARED ABLE TO DO SO HOWEVER FABRIC NORMALIZER WAS VERY WEAK. PT IS ABLE TO COUGH AND WEAKLY CLEAR SECRETIONS BUT APPEARS TO NOT HAVE A GAG REFLEX. PT IN AFIB/SINUS ARRYTHMIA. SBP IN THE 140S, HR IN THE 90-100S. PT HAS A WET COUGH. WAS ON 2LNC HOWEVER HAS BEEN MOVED UP TO 4L NC DUE TO A COUPLE DESAT EPISODES. PT DOES RECOVER FROM DESTAS. LUNG SOUNDS ARE COARSE THROUGHOUT. BT X4. Q6 CBGS. PG IN VERA, 2 BILAT WRIST IVS PATENT. SHELDON IN PLACE DRAINING CLEAR LIGHT YELLOW URINE. PRECEDEX INFUSING AT 0.2MCG, PPN AT 90MLS/HR, NS AT TKO WITH ABX. SKIN IS INTACT BUT FRAGILE. PT IS SOMEWHAT FIDGITY/RESTLESS WITH R SIDE AND WILL REPOSITION SELF ON BACK AFTER TURNS. WILL CONTINUE TO MONITOR
--- NOTE | 2019-07-07 21:34 | NUR ---
ASSUMED CARE ASSUMED CARE OF PATIENT. PRECEDEX CONTINUES @ 0.2MCG/KG/HR. PT AWAKE, RESTLESS IN BED. CONTINUES TO MOVE RIGHT SIDE ONLY. WITHDRAWS LLE TO NOXIOUS STIMULI. NO VERBAL RESPONSE. EYES WITH UPWARD GAZE, PUPILS REACTIVE. VSS. REMAINS ON 4L NC AT THIS TIME. OCCASIONAL WET COUGH NOTED. SHELDON PATENT AND DRAINING YELLOW URINE.
[2019-07-08 04:00] LABS: BASOPHILS ABSOLUTE AUTO 0.02 K/mm3 (0.00-0.23); BASOPHILS PERCENT AUTO 0 % (0-2); EOSINOPHILS PERCENT AUTO 0 % (0-6); Hematocrit 45.7 % (37.0-53.0); Hemoglobin 14.7 g/dL (13.5-17.5); IMMATURE GRAN ABSOLUTE AUTO 0.07 K/mm3 (0.00-0.10); IMMATURE GRAN PERCENT AUTO 1 % (0-1); LYMPHOCYTES ABSOLUTE AUTO 1.22 K/mm3 (0.84-5.20); LYMPHOCYTES PERCENT AUTO 10 % (21-46); MONOCYTES ABSOLUTE AUTO 1.04 K/mm3 (0.16-1.47); MONOCYTES PERCENT AUTO 8 % (4-13); Mean Corpuscular HGB 30.7 pg (26.0-34.0); Mean Corpuscular HGB Conc 32.2 g/dL (31.5-36.5); Mean Corpuscular Volume 95 fL (80-100); NEUTROPHILS ABSOLUTE AUTO 10.18 K/mm3 (1.96-9.15); NEUTROPHILS PERCENT AUTO 81 % (41-73); Platelet Count 289 K/mm3 (150-400); RDW Coefficient Variation 12.3 % (11.7-14.2); RDW Standard Deviation 43.1 fL (35.1-46.3); Red Blood Cell Count 4.79 M/mm3 (4.30-5.90); White Blood Cell Count 12.53 K/mm3 (4.00-11.30)
[2019-07-08 04:22] LABS: Alanine Aminotransfer (ALT/SGP 170 U/L (12-78); Albumin, Blood 2.7 g/dL (3.4-5.0); Albumin/Globulin Ratio 0.6 (0.8-1.8); Alk Phos 63 U/L (50-136); Anion Gap 5 mmol/L (6-16); Aspartate Aminotrans (AST/SGOT 115 U/L (12-37); Bilirubin, Total 1.1 mg/dL (0.1-1.0); Blood Urea Nitrogen 42 mg/dL (8-24); Bun/Creatinine Ratio 28.2 (12.0-20.0); CO2, Blood 32 mmol/L (21-32); Calcium, Blood 9.4 mg/dL (8.5-10.1); Chloride, Blood 118 mmol/L (98-108); Creatinine, Blood 1.49 mg/dL (0.60-1.20); Globulin, Blood 4.2 g/dL (2.2-4.0); Glomerular Filtration Rate 50 (60-); Glucose, Blood 117 mg/dL (70-99); Magnesium, Blood 2.7 mg/dL (1.6-2.4); Phosphorus, Blood 3.7 mg/dL (2.5-4.9); Potassium, Blood 3.2 mmol/L (3.5-5.5); Sodium, Blood 155 mmol/L (136-145); Total Protein, Blood 6.9 g/dL (6.4-8.2); Triglycerides 128 mg/dL (30-160); Vancomycin, Trough 13.6 ug/mL (5.0-10.0)
--- NOTE | 2019-07-08 06:29 | NUR ---
SHIFT SUMMARY NO ACUTE CHANGES. CONTINUES TO MOVE RIGHT SIDE ONLY. RESTLESS MOVEMENTS IN BED. WITHDRAWS LLE TO NOXIOUS STIMULI. AMAN, 4M, SLUGGISH. UPWARD GAZE CONTINUES. CRYSTAL AND WRIST RESTRAINTS REMAIN IN PLACE. NO VERBAL RESPONSE. OCCASIONALLY HYPERTENSIVE. HEART RATE BETWEEN 80-150s DURING NOC. CARDIZEM STARTED, INFUSING @ 10MG/HR AND NOW HR 80-110s. TMAX 100.9F. TACYPNEIC AT TIMES. ALSO HAS PERIODS OF APNEA. O2 4L NC. WET COUGH CONTINUES. NT SX X 1 DURING SHIFT. SHELDON PATENT AND DRAINING CLEAR YELLOW URINE. CLINIMIX INFUSING AT 90CC/HR PER ORDER. WILL REPORT TO DAY SHIFT RN WHEN AVAILABLE.
--- NOTE | 2019-07-08 07:45 | NUR ---
ASSUMED CARE BEDSIDE REPORT RECIEVED. PT IS LAYING IN BED WITH EYES OPEN WITH GAZE UPWARDS. PT DOES NOT FOLLOW COMMANDS OR MAKE PURPOSFUL MOVEMENTS. PT WITH FLACCID LEFT LEG AND ARM. PT MOVING RIGHT ARM AND LEG WELL. PT NON VERBAL. PRECEDEX PLACED ON STANDBY AT THIS TIME. CARDIZEM INFUSING AT 10 MG/HR, NS TKO, AND CLINIMIX AT 90 ML/HR. PT ON 4L O2 NC. PT WITH WET COUGH, UNABLE TO CLEAR SECRETIONS. PT NT SUCTIONED PER RT. RIGHT WRIST RESTRAINT IN PLACE AND CRYSTAL VEST IN PLACE. SHELDON IN PLACE WITH CLEAR YELLOW URINE OUTPUT NOTED. ATTENDS IN PLACE. SISTER CALLED AND UPDATED TO PT STATUS. WILL CONTINUE TO MONITOR.
--- NOTE | 2019-07-08 12:20 | NUR ---
COMFORT MEASURES ONLY REQUESTED, per sister & medical POA, Rebekah and pt's other four sisters after several long conversations, updates on current status and questions answered by phone this am re: options for care and pt's previously stated wishes. He lost his , Skylar approx one month ago and sister reports that prior to pt's admission he verbalized daily wanting to join his , not wanting to be from her and feeling that he and his were on "[place] now" and needed to be rejoined. Pt reports that pt has always been very independent and active despite long hx of mental illness and relapses with that. She states he would not accept a quality of life that included being totally dependent on others for his care and mobility. Rebekah asked for time to discuss his care/goals with other sisters and two daughters and return call. This was done this am and after family requested comfort measures his Dr was called and all of above reported. VO for comfort care obtained and entered with pt's bedside RN input. Arrangements made for family members to visit pt with two person max at a time and all visitors must pass covid-19 screening. Family aware of all of this. Training Associate and CM updated on above also. Pt is requiring soft restraint of RUE due to pulling at lines/ivs. Once those lines are discontinued, he may be less restless. He continues to be nonverbal and unable to follow commands. He is not indicating thirst or hunger and not able to safely be offered PO intake. He is not displaying nonverbal indicators of pain at this time, only restlessness and/or anxiety. Per comfort care order set, medications changed to SL, NC or IV routes as no safe swallow known at this time. All changes reviewed with pt's RN. Pal Care to remain available to monitor s/s and support pt/family. Dr to transfer out of ICU to medical floor also.
--- NOTE | 2019-07-08 12:32 | NUR ---
Initial spiritual care note: Mr. Ho is non-responsive, eyes focused up and to the right, breaths rapid. Per chart, he is Sikh. Provided prayer at bedside. I will remain available tp family.
--- NOTE | 2019-07-08 13:22 | NUR ---
COMFORT CARE DECISION HAS BEEN MADE BY PT SISTER MARTIN TO MAKE PT COMFORT CARE. SISTER HAS SPOKEN WITH PALLIATIVE CARE AT LENGTH. PT DNR STATUS. ALL IV GTT'S DISCONTINUED AT THIS TIME. RESTRAINTS REMOVED. PT IS RESTLESS IN BED AT THIS TIME. WILL CONTINUE TO MONITOR.
--- NOTE | 2019-07-08 14:52 | NUR ---
FAMILY VISIT PT SISTER MARTIN HERE TO SEE PT. UPDATED ON CURRENT CONDITION. PT APPEARS COMFORTABLE. WILL CONTINUE TO MONITOR.
--- NOTE | 2019-07-08 16:39 | NUR ---
Initial spiritual care note: Met with Marcelo's dtr and sister at bedside. They are both tearful and stoic. Provided gentle clinical counselor and prayer. I will remain available.
--- NOTE | 2019-07-08 16:53 | NUR ---
TRANSFER TO MEDICAL FLOOR REPORT CALLED TO FILEMON [place]. ALL QUESTIONS ANSWERED. PT TAKEN TO ROOM 313, ALL BELONGINS AND MEDS TAKEN WITH PT.
--- NOTE | 2019-07-08 17:01 | NUR ---
ASSUMED CARE: PT TRANSFERRED FROM ICU 10 IN BED BY 2 RNS. PT IS STARING UP AT CEILING, RIGHT ARM RAISED. NONRESPONSIVE. TACHYPNEA AND GURGLING NOTED. ADMINISTERED ATROPINE AND ROXINOL. POSITIONED SUPINE AT THIS TIME.
--- NOTE | 2019-07-08 17:37 | NUR ---
CONTACTED PT'S SISTER TO GIVE HER AN UPDATE AND LET HER KNOW THAT PT'S RESPIRATIONS HAVE CHANGED WITH LONGER PAUSES, 6-7 SECONDS AT TIMES BETWEEN BREATHS. TOLD SISTER THAT THIS IS INDICATIVE OF IMMINENCE BUT DOESN'T GUARANTEE THAT PT WILL PASS SOON. SISTER SAYS SHE WANTS TO BE WITH HIM AND IS ON HER WAY.
--- NOTE | 2019-07-08 19:25 | NUR ---
Comfort: patient is reaching for trappez, RR 23 with periods of apnea 15 sec. observed. Roxanol was given by day shift RN. Family is at bedside. Emotional support is given.
--- NOTE | 2019-07-08 20:09 | NUR ---
ANXIETY: PATIENT HAD POOR EFFECT FROM ROXANOL. STILL RESTLESS, RR ARE 24 WITH 10-15 SEC PERIODS OF APNEA. ATIVAN IS GIVEN.
--- NOTE | 2019-07-08 20:39 | NUR ---
ANXIETY: PATIENT IS MORE RELAXED LEGS ARE STILL AND HE IS NOT REACHING IN THE AIR. RR ARE 14 WITH 10 SECOND PERIODS OF APNEA. SISTER IS AT BEDSIDE. BED ALATRM IS ON FOR SAFETY.
--- NOTE | 2019-07-08 21:47 | NUR ---
COMFORT: PATIENT HAD GOOD EFFECT FROM ATIVAN, RESTING QUIETLY, RR ARE 16 WITH 10 SEC PERIODS OF APNEA.
--- NOTE | 2019-07-08 23:52 | NUR ---
COMFORT: PATIENT SCORES A 4 ON FLACC SCALE RR IS 28 WITH 20 SEC PERIOD OF APNEA. PERSONAL CARE, EMOTIONAL SUPPORT,T&P AND ROXANOL ARE GIVEN.
--- NOTE | 2019-07-09 00:54 | NUR ---
ANXIETY/PAIN: PATIENT IS RESTLESS PULLING SHEETS AND BLANKETS OFF. REACHING UP IN THE AIR WITH RIGHT ARM. POOR EFFECT FROM ROXANOL. PRN ATIVAN IS GIVEN, FAN IS ALSO USED FOR COMFORT. ENOTIONAL SUPPORT IS GIVEN. BED ALARM IS ON FOR SAFETY.
--- NOTE | 2019-07-09 03:01 | NUR ---
COMFORT: PATIENT IS RESTING COMFORTABLY AND IS NOT DISTURBED.
--- NOTE | 2019-07-09 03:06 | NUR ---
COMFORT: PATIENT IS RESTLESS WITH BENOIT STUBBS RESPIRATIONS. PATIENT IS REACHING IN THE AIR. PRN HALDOL IS GIVEN.
--- NOTE | 2019-07-09 04:05 | NUR ---
SECRETIONS: PATIENT IS TRYING TO COUGH UP SECRETIONS, ORAL SUCTIONING AND MOUNTH CARE ARE GIVEN. MUCUS PLUG IS REMOVED. EMOTIONAL SUPPORT IS GIVEN.
--- NOTE | 2019-07-09 06:02 | NUR ---
COMFORT: PATIENT HAD GOOD EFFECT FROM ATIVAN AND REMOVAL OF MUCUS PLUG. RESTING COMFORTABLY. CONTINUES TO HAVE BENOIT STUBBS RESPIRATIONS. EMOTIONAL ASUPPORT AND PERSONAL CARE ARE GIVEN.
--- NOTE | 2019-07-09 07:47 | NUR ---
PT R/R IRREG 24-28 w OCC APNEA, HR IRREG, TACHY. EYES PARTIALLY OPEN HOWEVER NONVERBAL, DOES NOT FOLLOW COMMANDS OR RESPOND. S/S PAIN, RESTLESSNESS/ANXIETY PRN ROXANOL GIVEN FOR PAIN, AIR HUNGER, ANXIETY. SHELDON CATH PATENT, DRNG DRK YELLOW URINE. ORAL CARE PROVIED. PT REPOSITIONED FOR COMFORT.
--- NOTE | 2019-07-09 11:59 | NUR ---
Pt tight some tremor noted. Nursing in to medicate. Pt ability to ventilate is poor. Extensive oral care and suctioning. positioned with arms elevated and support to neck. revewi with nursing scopolamine removed. brushed hair therputic touch he likes old movies so put one on tv. comfort quilt will assist tiwh oral care and family they are coming in today. pt progressing he could open one eye but unbable to verbalize. ventilations easier with medication and positioning.
--- NOTE | 2019-07-09 13:50 | NUR ---
BAR STEWARD PROVIDE BEDBATH. PT REPOSITIONED. CONTINUES NONVERBAL.
--- NOTE | 2019-07-09 13:51 | NUR ---
PT SISTER MARTIN CALL TO CHECK ON PT., STATE WILL BE IN TO VISIT, STATE THER ARE OTHER FAMILY WHO WOULD LIKE TO VISIT. NOTIFIED PALLIATIVE CARE RN WHO SPOKE WITH HER & MADE ARRANGEMENTS FOR VISITORS. ORAL CARE PROVIDED TO PT BY NURSING STAFF & PALLIATIVE CARE. PT REPOSITIONED FOR COMFORT. ROXANOL GIVEN FOR PAIN/AIR HUNGER, MILD RESTLESSNESS. MOUTH HAS BEEN VERY DRY, SCOPALAMINE PATCH REMOVED.
--- NOTE | 2019-07-09 13:56 | NUR ---
PT'S SISTERS ARE HERE TO VISIT. ORAL CARE PROVIDED. COOL TOWEL TO FOREHEAD, FAN @ BEDSIDE. PT MEDICATED FOR COMFORT/ORDERS w ROXANOL. WILL CONTINUE TO MX.
--- NOTE | 2019-07-09 17:11 | NUR ---
Spiritual care visit: Met with sister and niece of pt. They told me stories about Marcelo's difficult life and the family history of mental illness, abuse, and incarcerations. They were tearful and expressed gratitude that Marcelo appears peaceful. Both state that Marcelo has been saying he is "ready to go" and affirmed that he did not want life sustaining measures under any circumstances. They are relieved he is at peace. Both responded well to theraputic listeing, bereavement professor of counseling, and emotional affirmation. Marcelo was non-responsive and appeared very comfortable. Spanish Instructor services will remain available.
--- NOTE | 2019-07-09 17:24 | NUR ---
COMFORT CARE CONTINUES. PT CONTINUES NONVERBAL, ESSENTIALLY NON-RESPONSIVE. EYES OPEN w STIM HOWEVER DOES NOT RESPOND. FAMILY HAS BEEN @ BEDSIDE THIS AFTERNOON, PLEASANT/APPRECIATIVE. COMFORT CARE MEASURES/MEDS REVIEWED w THEM. S/S PAIN/DISCOMFORT REVIEWED. PT REPOSITIONED FOR COMFORT, NO S/S PAIN OR AIR HUNGER @ THIS TIME. 500ML URINE OUTPUT VIA SHELDON. R/R 20-24, CONTINUES IRREG w PAUSES. WILL CONTINUE TO MX.
--- NOTE | 2019-07-09 17:49 | NUR ---
family in review of symptoms and his needs. alejandroplian in for support. pt shoing s/s of progression to end of life.
--- NOTE | 2019-07-09 22:15 | NUR ---
PT CONTINUES ON COMFORT CARE WITH SISTER AT SIDE AND SUPPORTIVE.
== END 2019-07-10 00:55 | DRG 871 ==
LOC: ER 12:36 → ICUW 17:32 → MEDS 07-08 16:36
PROVIDERS: Emergency Medicine; Internal Medicine; Internal Medicine Critical Care Medicine; Nurse Practitioner Acute Care; ADMIT Internal Medicine
PROC: 5A09357 Assistance with Respiratory Ventilation, Less than 24 Consecutive Hours, Continuous Positive Airway Pressure (ICD-10-PCS; principal; 2019-07-04)
DX: A41.9 Sepsis, unspecified organism (principal); J96.01 Acute respiratory failure with hypoxia; R65.21 Severe sepsis with septic shock; I21.A1 Myocardial infarction type 2; I50.21 Acute systolic (congestive) heart failure; I63.411 Cerebral infarction due to embolism of right middle cerebral artery; J18.9 Pneumonia, unspecified organism; E87.2 Acidosis; N17.9 Acute kidney failure, unspecified; Z51.5 Encounter for palliative care; F03.90 Unspecified dementia, unspecified severity, without behavioral disturbance, psychotic disturbance, mood disturbance, and anxiety; F17.210 Nicotine dependence, cigarettes, uncomplicated; F20.9 Schizophrenia, unspecified; Z66 Do not resuscitate; E87.6 Hypokalemia; I35.0 Nonrheumatic aortic (valve) stenosis; R13.10 Dysphagia, unspecified; Z91.14 Patient's other noncompliance with medication regimen; I11.0 Hypertensive heart disease with heart failure
CPT/HCPCS: 0099U; 31720; 36415; 36600; 51703; 70450; 71045; 80048; 80053; 80202; 81001; 82248; 82550; 82728; 82803; 82947; 83605; 83615; 83735; 83880; 84100; 84145; 84478; 84484; 85025; 85027; 85049; 85610; 85730; 86140; 87040; 87449; 93005; 93010; 93306; 94644; 94660; 96361; 96365; 96366; 96367; 96375; 99285-25; A9270-GY; C1751; G0480; J0456; J1630; J1644; J1940; J1956; J2060; J2543; J3370; J3480; J7030; J7050; J7060; J7070; U0002